=== PATIENT | female | born 1960 | race Caucasian/White ===

== ENCOUNTER 2016-11-23 10:27 | Emergency (ER) | payer OTHER | END 2016-11-23 12:50 | disposition home or self-care (01) | LOC: ER1 10:27 | DX: S82.832A Other fracture of upper and lower end of left fibula, initial encounter for closed fracture (principal); S93.601A Unspecified sprain of right foot, initial encounter; Y92.009 Unspecified place in unspecified non-institutional (private) residence as the place of occurrence of the external cause; Z88.6 Allergy status to analgesic agent; Z88.8 Allergy status to other drugs, medicaments and biological substances; W18.39XA Other fall on same level, initial encounter | CPT/HCPCS: 73610; 73630; 99283 ==